=== PATIENT | female | born 1945 | race Caucasian/White ===

== ENCOUNTER 2025-02-24 10:45 | Outpatient (RCR) | payer MEDICARE, BC, SELFPAY | END 2025-02-24 23:59 | disposition home or self-care (01) | LOC: PT 10:45 | PROVIDERS: Visit Provider Internal Medicine | DX: I89.0 Lymphedema, not elsewhere classified (principal) | CPT/HCPCS: 97163 ==

== ENCOUNTER 2025-03-30 13:00 | Outpatient (RCR) | payer MEDICARE, BC, SELFPAY | END 2025-03-30 23:59 | disposition home or self-care (01) | LOC: PT 13:00 | PROVIDERS: Visit Provider Internal Medicine | DX: I89.0 Lymphedema, not elsewhere classified (principal) | CPT/HCPCS: 97140 ==

== ENCOUNTER 2025-04-20 13:00 | Outpatient (RCR) | payer MEDICARE, BC, SELFPAY | END 2025-04-20 23:59 | disposition home or self-care (01) | LOC: PT 13:00 | PROVIDERS: Visit Provider Internal Medicine | DX: I89.0 Lymphedema, not elsewhere classified (principal) | CPT/HCPCS: 97140; 97760 ==